=== PATIENT | female | born 1975 | race Caucasian/White ===

== ENCOUNTER → 2020-12-09 | Outpatient (CLI) | payer BC | LOC: COL.RAD 13:00 | DX: C73 Malignant neoplasm of thyroid gland (principal); C77.0 Secondary and unspecified malignant neoplasm of lymph nodes of head, face and neck | CPT/HCPCS: A9517 ==

== ENCOUNTER → 2020-12-16 | Outpatient (CLI) | payer BC | LOC: COL.RAD 12:00 | DX: C73 Malignant neoplasm of thyroid gland (principal); C77.0 Secondary and unspecified malignant neoplasm of lymph nodes of head, face and neck ==